=== PATIENT | female | born 1970 | race Caucasian/White ===

== ENCOUNTER 2020-07-20 13:00 | Outpatient (CLI) | payer BC ==
--- NOTE | 2020-07-20 14:37 | ULT ---
US Abdominal: 07/20/2020 2:05 PM CLINICAL HISTORY: Abdominal pain and severe gastroesophageal reflux. STUDY: Complete abdominal ultrasound COMPARISON: None. FINDINGS: Liver: Size: Normal. Echogenicity: Normal. Contour: Smooth. Mass: None. Common bile duct: 4 mm Gallbladder: Normal. Pancreas: Head, body, and tail appear normal. Inferior vena cava: Normal in caliber Aorta: Normal in caliber Spleen: No focal lesions. Spleen measuring 7.8 cm in length. Right kidney: No pelvicalyceal dilatation. Right kidney measuring 12.5 cm in length. Left kidney: No pelvicalyceal dilatation. Left kidney measuring 10.4 cm in length. IMPRESSION: Unremarkable exam.
== END 2020-07-20 13:01 | disposition home or self-care (01) ==
LOC: MADULT 13:00
PROVIDERS: ATTEND Internal Medicine Gastroenterology
DX: R10.9 Unspecified abdominal pain (principal)
CPT/HCPCS: 93975